=== PATIENT | male | born 1960 | race Caucasian/White ===

== ENCOUNTER 2022-11-21 07:21 | Outpatient (CLI) | payer OTHER ==
[2022-11-21 08:50] LABS: #Basophils 0.1 10x3/uL (0.0-0.2); #Eosinphils 0.1 10x3/uL (0.0-0.5); #Monocytes 0.8 10x3/uL (0.0-1.1); #Neutrophils 2.8 10x3/uL (1.5-8.4); %Basophils 0.8 % (0.0-2.0); %Eosinophils 2.3 % (0.0-6.0); %Lymphocytes 36.8 % (18.0-47.0); %Neutrophils 46.8 % (40.0-75.0); Hematocrit 40.2 % (38.8-50.0); Hemoglobin 13.6 g/dL (13.5-17.5); Mean Corpuscular HGB CONC 33.8 g/dL (32.0-36.0); Mean Corpuscular Hemoglobin 33.1 pg (27.0-33.0); Mean Corpuscular Volume 97.8 fl (81.2-95.1); Mean Platelet Volume 8.8 fl (7.4-10.4); Platelet Count 278 10x3/uL (150-450); RBC Distribution Width 13.3 % (11.5-14.5); Red Blood Cell (RBC) Count 4.11 10x6/uL (4.32-5.72)
[2022-11-21 09:05] LABS: ALT (SGPT) 29 U/L (8-55); AST (SGOT) 26 U/L (5-34); Albumin 4.8 g/dL (3.5-5.0); Alkaline Phosphatase 92 U/L (40-110); Anion Gap 14 mmol/L (10-20); BUN (Urea Nitrogen) 9 mg/dL (8.4-25.7); Bilirubin, Total 0.2 mg/dL (0.2-1.2); Calc. Creatinine Clearance 0 mL/min (70-130); Calcium 9.5 mg/dL (7.8-10.44); Carbon Dioxide 26 mmol/L (22-29); Chloride 104 mmol/L (98-107); Estimated GFR 102; Globulin 2.7 g/dL (2.4-3.5); Glucose 87 mg/dL (70-105); Protein, Total 7.5 g/dL (6.0-8.3); Sodium 140 mmol/L (136-145)
== END 2022-11-21 07:22 | disposition home or self-care (01) ==
LOC: LABBT 07:21
PROVIDERS: ATTEND Surgery
DX: Z01.818 Encounter for other preprocedural examination (principal); K40.90 Unilateral inguinal hernia, without obstruction or gangrene, not specified as recurrent
CPT/HCPCS: 80053; 85025; 93005; 93010

== ENCOUNTER 2022-11-26 06:26 | Day surgery (SDC) | payer OTHER ==
[2022-11-21 08:07] VITALS: BMI 20.9
[2022-11-26] MEDS ORDERED: LevoFLOXacin 500 mg/D5W 100 ML BAG ONE (08:16)
[2022-11-26] MEDS ORDERED: Lidocaine 1% MPF 2 ML VIAL ONE (08:17)
[2022-11-26] MEDS ORDERED: Bupivacaine PF 0.5% 30 ML VIAL ONE (08:37)
[2022-11-26] MEDS ORDERED: EPINEPHrine 1 MG/ML AMP ONE (08:37)
[2022-11-26] MEDS ORDERED: fentaNYL PF 100 MCG/2 ML SYRINGE ONE (08:41)
[2022-11-26] MEDS ORDERED: Esmolol 100 MG/10 ML VIAL ONE ×2 (08:42→08:52)
[2022-11-26] MEDS ORDERED: Ondansetron PF 4 MG/2 ML Vial ONE ×2 (08:42→08:52)
[2022-11-26] MEDS ORDERED: SUGAMMADEX SODIUM 200 MG/2 ML VIAL ONE (08:42)
[2022-11-26] MEDS ORDERED: Midazolam HCl 2 mg/2 ml Vial ONE (08:47)
[2022-11-26] MEDS ORDERED: Lidocaine 1% PF 5 ML VIAL ONE (08:52)
[2022-11-26] MEDS ORDERED: PHENYLEPHRINE-NS 100 MCG/ML 10 ML SYRINGE ONE (08:52)
[2022-11-26] MEDS ORDERED: PROPOFOL 200 MG/20 ML VIAL ONE (08:52)
[2022-11-26] MEDS ORDERED: Ketorolac Tromethamine 30 MG/ML VIAL ONE (08:52)
[2022-11-26] MEDS ORDERED: Dexamethasone 20 MG/5 ML VIAL ONE (08:52)
[2022-11-26] MEDS ORDERED: fentaNYL 50 mcg/mL 1 mL Vial ONE ×2 (10:35→10:47)
== END 2022-11-26 13:25 | disposition home or self-care (01) ==
LOC: SDC 06:26
PROVIDERS: ATTEND Surgery
PROC: 0YU50JZ Supplement Right Inguinal Region with Synthetic Substitute, Open Approach (ICD-10-PCS; principal; 2022-11-26)
DX: K40.90 Unilateral inguinal hernia, without obstruction or gangrene, not specified as recurrent (principal); E78.5 Hyperlipidemia, unspecified; I10 Essential (primary) hypertension; Z88.0 Allergy status to penicillin; Z79.899 Other long term (current) drug therapy
CPT/HCPCS: C1781; J0171; J1100; J1885; J1956; J2250; J2405; J2704; J3010; S0020

== ENCOUNTER 2022-12-04 13:17 | Emergency (ER) | payer OTHER ==
[2022-12-04 13:55] LABS: #Eosinphils 0.1 thou/uL (0.0-0.7); #Monocytes 1.4 thou/uL (0.11-0.59); %Basophils 0.4 % (0.0-1.0); %Eosinophils 0.9 % (0.0-10.0); %Lymphocytes 23.4 % (21.0-51.0); %Monocytes 13.7 % (0.0-10.0); %Neutrophils 61.2 % (42.0-75.0); Hematocrit 35.5 % (42.0-52.0); Hemoglobin 11.8 g/dL (14.0-18.0); Mean Corpuscular HGB CONC 33.2 g/dL (32.0-36.0); Mean Corpuscular Hemoglobin 32.3 pg (27.0-31.0); Mean Corpuscular Volume 97.3 fl (78.0-98.0); Mean Platelet Volume 8.7 fL (7.4-10.4); Platelet Count 345 10x3/uL (130-400); Red Blood Cell (RBC) Count 3.65 mill/uL (4.70-6.10); White Blood Cell (WBC) Count 9.9 10x3/uL (4.8-10.8)
[2022-12-04] MEDS ORDERED: Acetaminophen 500 MG TAB ONE (13:57)
[2022-12-04 14:19] LABS: ALT (SGPT) 15 U/L (8-55); AST (SGOT) 16 U/L (5-34); Albumin 4.3 g/dL (3.5-5.0); Alkaline Phosphatase 95 U/L (40-110); Anion Gap 13 mmol/L (10-20); BUN (Urea Nitrogen) 7 mg/dL (8.4-25.7); Bilirubin, Total 0.2 mg/dL (0.2-1.2); Calc. Creatinine Clearance 0 mL/min (70-130); Carbon Dioxide 26 mmol/L (22-29); Chloride 103 mmol/L (98-107); Estimated GFR 100; Globulin 3.7 g/dL (2.4-3.5); Glucose 99 mg/dL (70-105); Potassium 3.9 mmol/L (3.5-5.1); Sodium 138 mmol/L (136-145)
[2022-12-04 14:44] LABS: Bacteria/HPF None Seen HPF (None Seen); Bilirubin Negative (Negative); Blood, Urine Negative (Negative); CAUTI Indications for Culture Dysuria,urgency,freq; Clarity Clear (Clear); Glucose, Urine (Dipstick) Normal (Negative); Ketone, Urine Negative (Negative); Leukocyte Negative Leu/uL (Negative); Nitrite Negative (Negative); Protein, Urine (Dipstick) Negative (Neg-Trace); RBC/HPF 0-3 HPF (0-3); Specific Gravity, Urine 1.006 (1.002-1.036); Squamous Epithelial None Seen HPF (0-3); Urobilinogen Normal mg/dL (Less than 2); WBC/HPF 0-3 HPF (0-3)
[2022-12-04 14:47] LABS: Urine Culture Reflex No No
[2022-12-04 14:48] LABS: Amphetamine Not Detected (NotDetected); Barbiturates Screen Not Detected (NotDetected); Benzodiazepine Screen Not Detected (NotDetected); Cocaine Metabolite Screen Not Detected (NotDetected); Methadone Not Detected (NotDetected); Methamphetamine Not Detected (NotDetected); Opiate Screen Not Detected (NotDetected); Oxycodone Screen Not Detected (NotDetected); Phencyclidine (PCP) Not Detected (NotDetected); THC/Cannabinoid Screen Not Detected (NotDetected); Tricyclic Screen Not Detected (NotDetected)
[2022-12-05 01:19] LABS: Chlam.trachomatis by PCR,Urine Not Detected (NotDetected); GC N.gonorrhoeae PCR,UrineVOID Not Detected (NotDetected)
== END 2022-12-04 16:13 | disposition home or self-care (01) ==
LOC: ERS 13:17
DX: S30.22XA Contusion of scrotum and testes, initial encounter (principal); I10 Essential (primary) hypertension; E78.5 Hyperlipidemia, unspecified; F17.210 Nicotine dependence, cigarettes, uncomplicated
CPT/HCPCS: 36415; 76870; 80053; 80306; 81001; 85025; 87491; 87591; 93976

== ENCOUNTER 2023-04-29 09:17 | Emergency (ER) | payer OTHER | END 2023-04-29 11:38 | disposition home or self-care (01) | LOC: ERS 09:17 | DX: M25.511 Pain in right shoulder (principal); M25.562 Pain in left knee; I10 Essential (primary) hypertension; F17.210 Nicotine dependence, cigarettes, uncomplicated; Z76.89 Persons encountering health services in other specified circumstances; Z79.899 Other long term (current) drug therapy; W22.8XXA Striking against or struck by other objects, initial encounter; Y93.01 Activity, walking, marching and hiking | CPT/HCPCS: 70450 ==

== ENCOUNTER 2023-09-16 07:11 | Outpatient (CLI) | payer OTHER | END 2023-09-16 07:12 | disposition home or self-care (01) | LOC: BICMRI 07:11 | PROVIDERS: ATTEND Orthopaedic Surgery | DX: S46.011D Strain of muscle(s) and tendon(s) of the rotator cuff of right shoulder, subsequent encounter (principal); M75.121 Complete rotator cuff tear or rupture of right shoulder, not specified as traumatic; M67.813 Other specified disorders of tendon, right shoulder; M19.011 Primary osteoarthritis, right shoulder ==

== ENCOUNTER 2024-02-08 13:38 | Emergency (ER) | payer OTHER ==
[2024-02-08] MEDS ORDERED: methylPREDNISolone Sod Succ/PF 125 MG/2 ML VIAL ONE (14:39)
[2024-02-08] MEDS ORDERED: Famotidine 20 MG TAB ONE (14:39)
[2024-02-08] MEDS ORDERED: diphenhydrAMINE 50 MG CAP ONE (14:52)
== END 2024-02-08 15:33 | disposition home or self-care (01) ==
LOC: ERS 13:38
DX: L50.9 Urticaria, unspecified (principal); I10 Essential (primary) hypertension; F17.210 Nicotine dependence, cigarettes, uncomplicated
CPT/HCPCS: 96372; 99282; J2919

== ENCOUNTER 2024-02-27 11:27 | Emergency (ER) | payer OTHER ==
[~2024-02-27 11:27] MED LIST: Iopamidol-370 76% 500 ML MDV (1 ML CHARGE) ONE
[2024-02-27 12:22] LABS: #Basophils 0.04 10x3/uL (0.0-0.2); %Basophils 0.6 % (0.0-1.0); %Eosinophils 1.9 % (0.0-10.0); %Lymphocytes 28.3 % (21.0-51.0); %Monocytes 10.3 % (0.0-10.0); %Neutrophils 58.6 % (42.0-75.0); Hematocrit 37.5 % (42.0-52.0); Mean Corpuscular HGB CONC 34.7 g/dL (32.0-36.0); Mean Corpuscular Hemoglobin 32.7 pg (27.0-31.0); Mean Corpuscular Volume 94.2 fL (78.0-98.0); Mean Platelet Volume 8.4 fL (7.4-10.4); Platelet Count 295 10x3/uL (130-400); RBC Distribution Width 13.1 % (11.5-14.5); Red Blood Cell (RBC) Count 3.98 mill/uL (4.70-6.10)
[2024-02-27] MEDS ORDERED: Morphine 4 MG/ML VIAL ONE (12:32)
[2024-02-27] MEDS ORDERED: Ondansetron PF 4 MG/2 ML Vial ONE ×2 (12:32→14:26)
[2024-02-27 12:43] LABS: Bilirubin Negative (Negative); Blood, Urine 1+ (Negative); CAUTI Indications for Culture Dysuria,urgency,freq; Clarity Turbid (Clear); Glucose, Urine (Dipstick) Normal (Negative); Ketone, Urine Negative (Negative); Leukocyte 500 Leu/uL (Negative); Nitrite 1+ (Negative); Protein, Urine (Dipstick) 10 mg/dL (Neg-Trace); Urobilinogen Normal mg/dL (Less than 2); pH, Urine 5.5 (5.0-9.0)
[2024-02-27 12:53] LABS: Specific Gravity, Urine 1.005 (1.002-1.036)
[2024-02-27 12:56] LABS: Squamous Epithelial 0-3 HPF (0-3); WBC/HPF Greater than 50 HPF (0-3)
[2024-02-27 12:57] LABS: Bacteria/HPF 2+ HPF (None Seen); Urine Culture Reflex Yes Yes
[2024-02-27 13:47] LABS: ALT (SGPT) 19 U/L (8-55); AST (SGOT) 21 U/L (5-34); Albumin 3.6 g/dL (3.4-4.8); Alkaline Phosphatase 105 U/L (40-110); Anion Gap 17 mmol/L (10-20); BUN (Urea Nitrogen) 11 mg/dL (8.4-25.7); Bilirubin, Total 0.2 mg/dL (0.2-1.2); Calc. Creatinine Clearance 0 mL/min (70-130); Calcium 9.1 mg/dL (7.8-10.44); Carbon Dioxide 19 mmol/L (23-31); Chloride 107 mmol/L (98-107); Estimated GFR 102; Globulin 3.7 g/dL (2.4-3.5); Glucose 88 mg/dL (80-115); Potassium 3.4 mmol/L (3.5-5.1); Protein, Total 7.3 g/dL (5.8-8.1); Sodium 140 mmol/L (136-145)
[2024-02-27] MEDS ORDERED: LevoFLOXacin 750 mg/D5W 150 ml Premix Bag ONE (14:26)
== END 2024-02-27 16:15 | disposition home or self-care (01) ==
LOC: ERS 11:27
DX: N39.0 Urinary tract infection, site not specified (principal); R33.9 Retention of urine, unspecified; N43.3 Hydrocele, unspecified; N43.40 Spermatocele of epididymis, unspecified; I10 Essential (primary) hypertension; E78.5 Hyperlipidemia, unspecified; F17.210 Nicotine dependence, cigarettes, uncomplicated
CPT/HCPCS: 51702; 74177; 76870; 80053; 81001; 85025; 87077; 87086; 87186; 93976; 96374; 96375; J1956; J2272; J2405; Q9967

== ENCOUNTER 2024-04-07 11:31 | Outpatient (CLI) | payer OTHER ==
[2024-04-07 13:02] LABS: #Basophils 0.04 10x3/uL (0.0-0.2); %Basophils 0.8 % (0.0-1.0); %Eosinophils 0.8 % (0.0-10.0); %Lymphocytes 27.7 % (21.0-51.0); %Monocytes 13.3 % (0.0-10.0); %Neutrophils 57.2 % (42.0-75.0); Hematocrit 42.3 % (42.0-52.0); Hemoglobin 14.2 g/dL (14.0-18.0); Mean Corpuscular HGB CONC 33.6 g/dL (32.0-36.0); Mean Corpuscular Hemoglobin 32.2 pg (27.0-31.0); Mean Corpuscular Volume 95.9 fL (78.0-98.0); Mean Platelet Volume 8.9 fL (7.4-10.4); Platelet Count 243 10x3/uL (130-400); RBC Distribution Width 14.6 % (11.5-14.5); Red Blood Cell (RBC) Count 4.41 mill/uL (4.70-6.10)
[2024-04-07 13:13] LABS: Bacteria/HPF None Seen HPF (None Seen); Bilirubin Negative (Negative); Blood, Urine Negative (Negative); Clarity Clear (Clear); Glucose, Urine (Dipstick) Normal (Negative); Ketone, Urine Negative (Negative); Leukocyte Negative Leu/uL (Negative); Nitrite Negative (Negative); Protein, Urine (Dipstick) Negative (Neg-Trace); RBC/HPF 0-3 HPF (0-3); Specific Gravity, Urine 1.008 (1.002-1.036); Squamous Epithelial None Seen HPF (0-3); Urobilinogen Normal mg/dL (Less than 2); WBC/HPF 0-3 HPF (0-3)
[2024-04-07 13:22] LABS: PTT 29.5 sec (22.9-36.1); Prothrombin Time 13.2 sec (12.0-14.7)
[2024-04-07 13:28] LABS: Anion Gap 12 mmol/L (10-20); BUN (Urea Nitrogen) 7 mg/dL (8.4-25.7); Calc. Creatinine Clearance 0 mL/min (70-130); Calcium 9.3 mg/dL (7.8-10.44); Carbon Dioxide 24 mmol/L (23-31); Chloride 105 mmol/L (98-107); Estimated GFR 104; Glucose 97 mg/dL (80-115); Potassium 4.1 mmol/L (3.5-5.1); Sodium 137 mmol/L (136-145)
== END 2024-04-07 11:32 | disposition home or self-care (01) ==
LOC: LABBT 11:31
PROVIDERS: ATTEND Urology
DX: Z01.818 Encounter for other preprocedural examination (principal); Z12.5 Encounter for screening for malignant neoplasm of prostate; N40.1 Benign prostatic hyperplasia with lower urinary tract symptoms; N43.40 Spermatocele of epididymis, unspecified; N43.3 Hydrocele, unspecified; K40.90 Unilateral inguinal hernia, without obstruction or gangrene, not specified as recurrent; F10.90 Alcohol use, unspecified, uncomplicated; F17.200 Nicotine dependence, unspecified, uncomplicated; R68.89 Other general symptoms and signs; R33.9 Retention of urine, unspecified; R39.14 Feeling of incomplete bladder emptying; R97.20 Elevated prostate specific antigen [PSA]
CPT/HCPCS: 71046; 80048; 81001; 85025; 85610; 85730; 87086; 93005; 93010

== ENCOUNTER 2024-04-11 06:32 | Day surgery (SDC) | payer OTHER ==
[2024-04-07 12:13] VITALS: BMI 21.6
[2024-04-11] MEDS ORDERED: fentaNYL PF 100 MCG/2 ML SYRINGE ONE (07:05)
[2024-04-11] MEDS ORDERED: PROPOFOL 20 ML ONE ×2 (07:05→07:48)
[2024-04-11] MEDS ORDERED: Midazolam HCl 2 mg/2 ml Vial ONE (07:05)
[2024-04-11] MEDS ORDERED: cefTRIAXone (ROCEPHIN) 2 GM VIAL ONE (07:11)
[2024-04-11] MEDS ORDERED: Sodium Chloride 0.9% 100 ML ONE (07:12)
[2024-04-11] MEDS ORDERED: Ciprofloxacin Lactate D5W 400 mg (200 mL) BAG ONE (07:22)
[2024-04-11] MEDS ORDERED: Ciprofloxacin Lactate/D5W 400 MG in Premix 1 BAG IVPB SCH (07:30)
[2024-04-11] MEDS ORDERED: Lidocaine 1% PF 5 ML VIAL ONE (07:51)
[2024-04-11] MEDS ORDERED: Phenazopyridine HCl 100 MG TAB ONE (08:12)
[2024-04-11] MEDS ORDERED: Tamsulosin HCl 0.4 MG CAP ONE (08:16)
== END 2024-04-11 09:56 | disposition home or self-care (01) ==
LOC: SDC 06:32
PROVIDERS: ATTEND Urology
PROC: 0VB08ZX Excision of Prostate, Via Natural or Artificial Opening Endoscopic, Diagnostic (ICD-10-PCS; principal; 2024-04-11)
DX: C61 Malignant neoplasm of prostate (principal); N40.1 Benign prostatic hyperplasia with lower urinary tract symptoms; R97.20 Elevated prostate specific antigen [PSA]; N39.0 Urinary tract infection, site not specified; N43.40 Spermatocele of epididymis, unspecified; R39.14 Feeling of incomplete bladder emptying; N43.3 Hydrocele, unspecified; F10.90 Alcohol use, unspecified, uncomplicated; R68.89 Other general symptoms and signs; K40.90 Unilateral inguinal hernia, without obstruction or gangrene, not specified as recurrent; E78.00 Pure hypercholesterolemia, unspecified; I10 Essential (primary) hypertension; Z79.899 Other long term (current) drug therapy; F17.200 Nicotine dependence, unspecified, uncomplicated; Z88.0 Allergy status to penicillin
CPT/HCPCS: G0416; J0696; J0744; J2250; J2704

== ENCOUNTER 2024-05-10 12:30 | Outpatient (CLI) | payer OTHER | END 2024-05-10 12:31 | disposition home or self-care (01) | LOC: PET 12:30 | PROVIDERS: ATTEND Urology | DX: C61 Malignant neoplasm of prostate (principal); C79.51 Secondary malignant neoplasm of bone; C77.9 Secondary and unspecified malignant neoplasm of lymph node, unspecified | CPT/HCPCS: 78815; A9595 ==